=== PATIENT | male | born 1960 | race Caucasian/White ===

== ENCOUNTER 2022-09-15 11:27 | Observation (INO) | payer OTHER ==
[2022-09-15 11:37] VITALS: BMI 31.6
[2022-09-15 12:18] LABS: BASO % 0.5 % (0-2.0); EOS % 1.9 % (0-4.5); HEMATOCRIT 45.8 % (35.4-49); HEMOGLOBIN 15.5 GM/dL (11.7-16.9); LYMPH % 19.4 % (8-40); MCH 28.5 pg (25.7-33.7); MCHC 33.9 g/dl (32.0-35.9); MEAN PLT VOLUME 7.4 fl (7.5-11.1); MONO % 9.8 % (3.8-10.2); NEUT % 68.4 % (42.8-82.8); PLATELET COUNT 253 10^3/uL (134-434); RBC 5.45 M/mm3 (4.00-5.60); RDW 12.9 % (11.9-15.9)
[2022-09-15 12:25] LABS: INR 1.04 (0.83-1.09); PROTHROMBIN TIME (PATIENT) 12.1 SEC (9.7-13.0)
[2022-09-15 12:28] LABS: ACTIVATED PTT 29.2 SECONDS (25.2-36.5)
[2022-09-15 12:39] LABS: BLOOD UREA NITROGEN 12.8 mg/dL (7-18); CALCIUM 9.5 mg/dL (8.5-10.1)
[2022-09-15 12:41] LABS: ALBUMIN 3.7 g/dl (3.4-5.0); MAGNESIUM 2.2 mg/dL (1.8-2.4)
[2022-09-15 12:45] LABS: BILIRUBIN,TOTAL 0.7 mg/dL (0.2-1); TOT PROT 6.8 g/dl (6.4-8.2)
[2022-09-15] MEDS ORDERED: ASPIRIN 81 MG CHEWABLE TABLETS PO ONE (13:40)
[2022-09-15] MEDS ORDERED: ASPIRIN 81 MG CHEWABLE TABLETS ONE (13:43)
[2022-09-15] MEDS ORDERED: ACETAMINOPHEN 325 MG TABLET (FP) PO ONE (21:19)
[2022-09-15] MEDS ORDERED: amLODIPine BESYLATE 10 MG TABLET (FP) PO SCH (21:21)
[2022-09-15] MEDS ORDERED: amLODIPine BESYLATE 10 MG TABLET (FP) PO ONE (21:55)
[2022-09-15] MEDS: ATORVASTATIN CA 20 MG TABLET (FP) PO SCH (21:58)
[2022-09-15] MEDS ORDERED: ATORVASTATIN CA 20 MG TABLET (FP) PO SCH (22:00)
[2022-09-16 01:21] VITALS: RESP 20
[2022-09-16] MEDS ORDERED: ACETAMINOPHEN 325 MG TABLET (FP) PO ONE (03:51)
[2022-09-16] MEDS ORDERED: LEVOTHYROXINE NA 150 MCG TABLET PO SCH (07:00)
[2022-09-16 07:12] LABS: BASO % 0.8 % (0-2.0); HEMOGLOBIN 14.6 GM/dL (11.7-16.9); LYMPH % 29.8 % (8-40); MCH 28.8 pg (25.7-33.7); MCHC 34.1 g/dl (32.0-35.9); MEAN CELL VOLUME 84.6 fl (80-96); MEAN PLT VOLUME 7.4 fl (7.5-11.1); MONO % 13.4 % (3.8-10.2); PLATELET COUNT 219 10^3/uL (134-434); RBC 5.08 M/mm3 (4.00-5.60); RDW 13.1 % (11.9-15.9); WHITE BLOOD COUNT 5.9 K/mm3 (4.0-10.0)
[2022-09-16 07:40] LABS: BLOOD UREA NITROGEN 14.3 mg/dL (7-18); CALCIUM 9.3 mg/dL (8.5-10.1)
[2022-09-16 07:44] LABS: CREATININE 1.1 mg/dL (0.55-1.3)
[2022-09-16] MEDS: amLODIPine BESYLATE 10 MG TABLET (FP) PO SCH (09:50)
[2022-09-16] MEDS: ATORVASTATIN CA 20 MG TABLET (FP) PO SCH ×2 (09:50→21:25)
[2022-09-16] MEDS: ENOXAPARIN NA (PORCINE) 40 MG/0.4 ML DISP.SYRIN SQ SCH (09:50)
[2022-09-16] MEDS: ASPIRIN COATED 81 MG TABLET.EC PO SCH (09:50)
[2022-09-16] MEDS ORDERED: amLODIPine BESYLATE 10 MG TABLET (FP) PO SCH (10:00)
[2022-09-16] MEDS ORDERED: ATORVASTATIN CA 20 MG TABLET (FP) PO SCH (10:00)
[2022-09-16] MEDS ORDERED: SODIUM CHLORIDE NS ONE (17:06)
[2022-09-16] MEDS ORDERED: ALOE NS ONE (17:06)
[2022-09-16] MEDS: BUDESONIDE/FORMETEROL FUMARATE 80/4.5 mcg INHALER IH SCH ×2 (17:19→21:26)
[2022-09-17 07:37] LABS: ALBUMIN 3.4 g/dl (3.4-5.0); MAGNESIUM 2.3 mg/dL (1.8-2.4)
[2022-09-17 07:38] LABS: BLOOD UREA NITROGEN 13.6 mg/dL (7-18)
[2022-09-17 07:41] LABS: CREATININE 0.9 mg/dL (0.55-1.3)
[2022-09-17 07:42] LABS: TOT PROT 6.5 g/dl (6.4-8.2)
[2022-09-17] MEDS ORDERED: REGADENOSON 0.4 MG/5 ML PRE-FILLED SYRINGE IVPUSH ONE ×2 (08:42→09:15)
[2022-09-17] MEDS: ASPIRIN COATED 81 MG TABLET.EC PO SCH (10:08)
[2022-09-17] MEDS: ENOXAPARIN NA (PORCINE) 40 MG/0.4 ML DISP.SYRIN SQ SCH (10:08)
[2022-09-17] MEDS: amLODIPine BESYLATE 10 MG TABLET (FP) PO SCH (10:08)
[2022-09-17] MEDS: BUDESONIDE/FORMETEROL FUMARATE 80/4.5 mcg INHALER IH SCH (10:09)
[2022-09-17 11:09] VITALS: BP 109/78; PULSE 73; TEMP 97.7
[2022-09-18] MEDS ORDERED: LEVOTHYROXINE NA 150 MCG TABLET PO SCH (07:00)
== END 2022-09-17 12:45 | disposition home or self-care (01) ==
LOC: JER 11:27 → JERBED 13:50 → J4W 20:36
PROVIDERS: ADMIT Internal Medicine; ATTEND Internal Medicine
PROC: 3E023GC Introduction of Other Therapeutic Substance into Muscle, Percutaneous Approach (ICD-10-PCS; principal; 2022-09-15)
PROC: 3E033GC Introduction of Other Therapeutic Substance into Peripheral Vein, Percutaneous Approach (ICD-10-PCS; 2022-09-15)
DX: R07.9 Chest pain, unspecified (principal); E03.9 Hypothyroidism, unspecified; J45.909 Unspecified asthma, uncomplicated; I10 Essential (primary) hypertension; E66.8 Other obesity; Z68.31 Body mass index [BMI] 31.0-31.9, adult; Z87.891 Personal history of nicotine dependence
CPT/HCPCS: 0241U-QW; 36415; 71046-TC-FY; 78452-TC; 80048; 80053; 83735; 84100; 84443; 84484; 85025; 85610; 85730; 93005; 93010; 93017; 93306-TC; 96372; 96374; 99285-25; A9502; G0378; J2785

== ENCOUNTER 2023-09-16 22:30 | Observation (INO) | payer OTHER ==
[2023-09-16 23:26] LABS: INR 1.02 (0.83-1.09); PROTHROMBIN TIME (PATIENT) 11.8 SEC (9.7-13.0)
[2023-09-16 23:28] LABS: ACTIVATED PTT 28.5 SECONDS (25.2-36.5)
[2023-09-16 23:33] LABS: POTASSIUM 3.9 mmol/L (3.5-5.1)
[2023-09-16 23:36] LABS: CALCIUM 9.2 mg/dL (8.5-10.1)
[2023-09-16 23:37] LABS: ALBUMIN 3.6 g/dl (3.4-5.0); BLOOD UREA NITROGEN 19.9 mg/dL (7-18); MAGNESIUM 2.1 mg/dL (1.8-2.4)
[2023-09-16 23:42] LABS: TOT PROT 7.4 g/dl (6.4-8.2)
[2023-09-16 23:47] LABS: BASO % 0.3 % (0-2.0); EOS % 0.1 % (0-4.5); HEMATOCRIT 48.6 % (35.4-49); HEMOGLOBIN 16.6 GM/dL (11.7-16.9); LYMPH % 5.9 % (8-40); MCH 29.1 pg (25.7-33.7); MCHC 34.2 g/dl (32.0-35.9); MEAN CELL VOLUME 84.9 fl (80-96); MEAN PLT VOLUME 8.1 fl (7.5-11.1); MONO % 10.3 % (3.8-10.2); NEUT % 83.4 % (42.8-82.8); PLATELET COUNT 206 10^3/uL (134-434); RBC 5.72 M/mm3 (4.00-5.60); RDW 13.7 % (11.9-15.9); WHITE BLOOD COUNT 8.3 K/mm3 (4.0-10.0)
[2023-09-17] MEDS: LACTATED RINGERS SOLUTION 1000 ML INFUS.BAG IV ONE (00:27)
[2023-09-17] MEDS ORDERED: ASPIRIN 81 MG CHEWABLE TABLETS ONE (01:15)
[2023-09-17 01:21] LABS: URINE APPEARANCE CLEAR; URINE BILIRUBIN NEGATIVE (NEGATIVE); URINE COLOR YELLOW; URINE GLUCOSE (UA) NEGATIVE (NEGATIVE)
[2023-09-17] MEDS: ASPIRIN 81 MG CHEWABLE TABLETS PO ONE (01:21)
[2023-09-17 01:22] LABS: PH,URINE 5.5 (5.0-8.0); URINE KETONE TRACE (NEGATIVE); URINE LEUK ESTERASE NEGATIVE (NEGATIVE); URINE NITRITE NEGATIVE (NEGATIVE); URINE PROTEIN NEGATIVE (NEGATIVE); URINE UROBILINOGEN 0.2 mg/dL (0.2-1.0)
[2023-09-17] MEDS ORDERED: ACETAMINOPHEN INJECTION 100 ML IVPB ONE (01:36)
[2023-09-17] MEDS: ACETAMINOPHEN 1000 MG/100 ML BAG IVPB ONE (01:41)
[2023-09-17 02:41] VITALS: RESP 18
[2023-09-17] MEDS: METOPROLOL TARTRATE 25 MG TABLET (FP) PO ONE (03:14)
[2023-09-17] MEDS ORDERED: ALPRAZolam 0.25 MG TABLET PO PRN (04:24)
[2023-09-17] MEDS ORDERED: ALBUTEROL SO4 HFA INHALER IH PRN (04:24)
[2023-09-17 04:55] VITALS: BMI 32.1
[2023-09-17] MEDS ORDERED: LEVOTHYROXINE NA 125 MCG TABLET (FP) ONE (06:31)
[2023-09-17] MEDS: LEVOTHYROXINE 125 MCG, LEVOTHYROXINE 50 MCG PO SCH (06:42)
[2023-09-17] MEDS ORDERED: PATIENT'S OWN MEDICATION (NON-FORMULARY) (Levothyroxine Sodium [Levothyroxine Sodium] 175 PO SCH (07:00)
[2023-09-17] MEDS: METOPROLOL TARTRATE 25 MG TABLET (FP) PO SCH (09:17)
[2023-09-17] MEDS: BUDESONIDE/FORMOTEROL FUMARATE 160-4.5 MCG (10.3 GM INHALER) IH SCH (09:24)
[2023-09-17] MEDS ORDERED: ENOXAPARIN NA (PORCINE) 40 MG/0.4 ML DISP.SYRIN SQ SCH (10:00)
[2023-09-17] MEDS: TAMSULOSIN HCL 0.4 MG CAP PO ONE (12:21)
[2023-09-17 14:43] VITALS: TEMP 97.9
[2023-09-17 14:45] VITALS: BP 140/90; PULSE 79
[2023-09-17] MEDS ORDERED: ATORVASTATIN CA 20 MG TABLET (FP) PO SCH (22:00)
== END 2023-09-17 15:13 | disposition home or self-care (01) ==
LOC: JER 22:30 → JERBED 09-17 00:43 → J4W 09-17 04:32
PROVIDERS: ADMIT Internal Medicine; ATTEND Internal Medicine
PROC: 0T9B70Z Drainage of Bladder with Drainage Device, Via Natural or Artificial Opening (ICD-10-PCS; principal; 2023-09-17)
PROC: 3E033NZ Introduction of Analgesics, Hypnotics, Sedatives into Peripheral Vein, Percutaneous Approach (ICD-10-PCS; 2023-09-17)
PROC: 3E0337Z Introduction of Electrolytic and Water Balance Substance into Peripheral Vein, Percutaneous Approach (ICD-10-PCS; 2023-09-17)
DX: R07.89 Other chest pain (principal); J45.909 Unspecified asthma, uncomplicated; R00.2 Palpitations; E78.00 Pure hypercholesterolemia, unspecified; E03.9 Hypothyroidism, unspecified; R33.9 Retention of urine, unspecified; R31.29 Other microscopic hematuria; Z87.891 Personal history of nicotine dependence
CPT/HCPCS: 0241U-QW; 36415; 51702; 71045-TC-FY; 76775-TC; 76856-TC; 80053; 81003; 83690; 83735; 84439; 84443; 84484; 85025; 85610; 85730; 87086; 93005; 93010; 96374; 99285-25; G0378; J0131